=== PATIENT | male | born 1975 | race Caucasian/White ===

== ENCOUNTER 2023-03-16 10:36 | Outpatient (AMB) | payer OTHER, SELFPAY ==
--- NOTE | 2023-03-16 10:45 | A.SPINEOV_ITS ---
Intake Intake Visit Reasons: lower back pain Intake Note: Mr. Levine is here today c/o low back pain. MRI/brought disc. 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 HPI: This 47-year-old male had an L5-S1 lumbar decompression done in 2005. He developed predominantly left-sided back pain and buttock pain radiating to his posterior thigh at the end of 2019. A new MRI reviewed an L5-S1 disc herniation and he was scheduled for surgery. Fortunately, the symptoms improved and surgery was postponed. He comes to see me for a 2nd opinion. He has monthly flare-ups of severe pain that radiates to his posterior thigh but can also affect the right side. He does have numbness in his calf an outside of his left foot, which he has had after his 2006 surgery. He is worried about a instability reported and wants to know if he is at risk for neurological injury. He also wants to know what my surgical opinion is. He takes [id number] medication during flare-up. He had a cortisone shot in the past PMH: Hypertension, cervical disc replacement Medications: Lisinopril, metoprolol Allergies: NKDA Social history: . Nonsmoker Physical Exam: Pleasant male. Today he is not in distress. He has mild discomfort on the left side of his back. There is an S1 hypoesthesia in a absent S1 reflex on the left side. Motor exam is 5/5. Radiological Studies: MRI of the lumbar spine done at [facility] of 01/24/2023 was compared to an MRI of 01/28/2021 and shows severe L5-S1 lumbar degenerative disc disease with a grade 1 retrolisthesis and a disc herniation causing compression of the left S1 nerve root and possibly right S1 nerve root. The size of the disc herniation has decreased compared to 2020. An x-ray of the lumbar spine shows a stable L5-S1 grade 1 retrolisthesis L5-S1 and degenerative disc disease L5-S1 Impression/Plan: Clinically this patient seems to suffer most from a left S1 radiculopathy with a component of back pain. We had an extensive discussion of surgical options. I think it would be worthwhile to only do a lumbar microd iskectomy as his symptoms seem to be mostly radicular in origin. However, he is well aware that if this does not provide significant relief, will need an L5-S1 lumbar fusion. I scheduled him for left L5-S1 microdiskectomy for 06/09/2023. We will request office notes from the primary care physician, including EKG and lab work. Thank you for allowing me to participate in your patients care. total time spent was 50 minutes in counseling ,coordination of plan, personal review of imaging, surgical decision making and subsequent plan Giuseppe San MD, PhD Spine Fellowship Trained Neurosurgeon Director, [facility] Coding Level of Care Code New Pt Level 4 (75249) Diagnoses Lumbosacral radiculopathy due to degenerative joint disease of spine M47.27 Retrolisthesis of vertebrae M43.10
== END 2023-03-16 11:16 | disposition home or self-care (01) ==
PROVIDERS: Referring Provider Family Medicine; Visit Provider Neurological Surgery
DX: M47.27 Other spondylosis with radiculopathy, lumbosacral region (principal); M43.10 Spondylolisthesis, site unspecified
CPT/HCPCS: 99204

== ENCOUNTER → 2023-03-16 10:36 | Outpatient (BNVA) | payer OTHER, SELFPAY | PROVIDERS: Visit Provider Neurological Surgery ==

== ENCOUNTER 2023-06-09 08:28 | Day surgery (SDC) | payer OTHER, SELFPAY ==
[2023-05-25 10:45] VITALS: BMI 28.7
--- NOTE | 2023-06-07 14:08 | HO.ANESPROP2 ---
Documented by User: Phoebe Mcconnell NP 06/07/23 14:09 HPI - Anesthesia Eval Consult details Narrative: 48yo M for Left L5-S1 Micro Lumbar discectomy PMFSH Active Problems Active Problems: All Active Problems (Updated 05/25/23 @ 10:43 by Alicia Molina RN) Retrolisthesis of vertebrae (Acute) Lumbosacral radiculopathy due to degenerative joint disease of spine (Acute) Past Medical History Medical History Prediabetes Elevated cholesterol Sinusitis Pyloric stenosis Back pain IBS (irritable bowel syndrome) GERD (gastroesophageal reflux disease) Depression Ferguson esophagus Anxiety Allergic rhinitis HTN (hypertension) Surgical History Surgical History Hx of sinus surgery Hx of pyloroplasty Hx of laminectomy History of esophagogastroduodenoscopy (EGD) H/O colonoscopy Hx of cervical spine surgery Social History Social History Are you a primary home care aide to a significant other at home: No Do you presently have visiting nurse or other home services: No Patient Tobacco Use Status: Never used Tobacco Use of substances other than those prescribed or required for medical reasons: Yes Substance Use Frequency: Daily Have you been hit, kicked, punched, or otherwise hurt by someone within the past year? If so, by whom?: No Advance Directives: No Advance Directives Information Provided: Yes Advance Directives on File: No Recently lost weight without trying: No Eating poorly because of decreased appetite: No Nutrition Risks: No Nutritional Risk Poor oral hygiene: No Meds Allergies Allergy/AdvReac Type Severity Reaction Status Date / Time No Known Allergies Allergy Verified 03/16/23 13:53 Home Medications ?Medication ?Instructions ?Recorded ?Confirmed ?Last Taken ?Type lisinopril 40 mg tablet 40 mg PO QAM 05/24/23 05/25/23 06/08/23 History metoprolol succinate 100 mg 150 mg PO DAILY 05/24/23 05/25/23 06/09/23 History tablet,extended release 24 hr atorvastatin 80 mg tablet 80 mg PO QAM 05/25/23 05/25/23 06/09/23 History citalopram 20 mg tablet 20 mg PO DAILY 05/25/23 05/25/23 06/09/23 History ibuprofen 200 mg tablet 400 mg PO Q6H PRN Pain 05/25/23 05/25/23 05/26/23 History omeprazole 40 mg capsule,delayed 40 mg PO QAM 05/25/23 05/25/23 06/09/23 History release Exam Height,Weight and Vital Signs: Height 5 ft 10 in Weight 90.718 kg Pertinent Lab Results Pertinent Lab Results: CBC and BMP 01/2023 from outside facility WNL Narrative Narrative: EKG 03/2022 NSR Assessment and Plan Assessment Anesthesia Assessment: Chart Reviewed Documented by User: Morteza Spencer MD 06/09/23 13:16 [facility] Past Medical History Medical History Prediabetes Elevated cholesterol Sinusitis Pyloric stenosis Back pain IBS (irritable bowel syndrome) GERD (gastroesophageal reflux disease) Depression Ferguson esophagus Anxiety Allergic rhinitis HTN (hypertension) Family History Family history of problems with anesthesia: No Surgical History Surgical History Hx of sinus surgery Hx of pyloroplasty Hx of laminectomy History of esophagogastroduodenoscopy (EGD) H/O colonoscopy Hx of cervical spine surgery History of Problems with Anesthesia: No Social History Social History Are you a primary home care aide to a significant other at home: No Do you presently have visiting nurse or other home services: No Patient Tobacco Use Status: Never used Tobacco Use of substances other than those prescribed or required for medical reasons: Yes Substance Use Frequency: Daily Have you been hit, kicked, punched, or otherwise hurt by someone within the past year? If so, by whom?: No Advance Directives: No Advance Directives Information Provided: Yes Advance Directives on File: No Recently lost weight without trying: No Eating poorly because of decreased appetite: No Nutrition Risks: No Nutritional Risk Poor oral hygiene: No Meds Allergies Allergy/AdvReac Type Severity Reaction Status Date / Time No Known Allergies Allergy Verified 03/16/23 13:53 Home Medications ?Medication ?Instructions ?Recorded ?Confirmed ?Last Taken ?Type lisinopril 40 mg tablet 40 mg PO QAM 05/24/23 05/25/23 06/08/23 History metoprolol succinate 100 mg 150 mg PO DAILY 05/24/23 05/25/23 06/09/23 History tablet,extended release 24 hr atorvastatin 80 mg tablet 80 mg PO QAM 05/25/23 05/25/23 06/09/23 History citalopram 20 mg tablet 20 mg PO DAILY 05/25/23 05/25/23 06/09/23 History ibuprofen 200 mg tablet 400 mg PO Q6H PRN Pain 05/25/23 05/25/23 05/26/23 History omeprazole 40 mg capsule,delayed 40 mg PO QAM 05/25/23 05/25/23 06/09/23 History release Exam Airway Mallampati Class: II TM Dist: >3cm Neck ROM: Full Loose/Missing/Broken Teeth: No Heart: [id number] Lungs: cta b/l Assessment and Plan Assessment Anesthesia Assessment: Anesthesia Plan Discussed Final Anesthetic Review Family History of Problems with Anesthesia: No History of Problems with Anesthesia: No NPO: Yes ASA Class: II Final Preanesthetic Review: No Changes in Pt Med Stat, Meds/Allgs Chart Reviewed, Consent Obtained/Reviewed and Anes Risks/Benef Reviewed Patient Risk: Intermediate Procedure Risk: Intermediate Assessment/Block/Sedation in : Assess/Block/Sedation- Anesthetic Plan Anesthetic Plan: GA and Agree w/ Assess. and Plan Disposition: Standard PACU
[2023-06-09] VITALS (12 sets, daily range): BP systolic 117–136; BP diastolic 79–90; PULSE 62–88; RESP 12–18; TEMP 36.1–36.3; O2SAT 90–98; BMI 29.5
--- NOTE | ~2023-06-09 | FL_ITS ---
EXAMINATION: XR FLUOROSCOPY WITH IMAGES CLINICAL INFORMATION: L5-S1 microlumbar discectomy. COMPARISON: Portions of the MRI lumbar spine dated 01/24/2023; lumbosacral spine radiographs dated 11/18/2020. TECHNIQUE: Fluoroscopy Supervised By: Dr. Kavin San. Fluoroscopy Time: 0.0 minutes. Cumulative Dose: 5.34 mGy. DAP: 1.45 Gycm2. Images: 1. FINDINGS: The submitted image shows a probe directed at the posterior L5-S1 disc space. FL/FL guidance in OR IMPRESSION: Intraoperative fluoroscopic guidance is provided during L5-S1 microlumbar discectomy. Please see the patient's Operative Report for full procedural details.
--- NOTE | 2023-06-09 07:05 | MHC.SHP ---
Pre-Procedural Eval Section A - 24 Hr Update-Section A only Date of Service: 06/09/23 The patient is an INPATIENT: No Changes since office visit: No Cold of Flu in the past 2 weeks, No New Medical Problems, No Changes in Medication and No Patient answered all questions The patient has been examined within 24 hours of the surgical procedure. The History & Physical has been completed within 30 days and I have reviewed it.: No Section B - Complete if H&P > 30 days Chief Complaint: Spondylolisthesis,spondylosis with radiculopathy Allergies: Allergies Allergy/AdvReac Type Severity Reaction Status Date / Time No Known Allergies Allergy Verified 03/16/23 13:53 Review of Systems Sugical H&P ROS: Negative: Constitution, Cardiovascular, Respiratory, Neurological, Psychiatric, Hem-Onc, Allergic/Immunologic, Gastrointestinal, Genitourinary, Musculoskeletal, Integumentary, Endocrine and Eyes/Ears/Nose/Throat Exam Surgical H&P Exam: Not Evaluated: HEENT, Not Evaluated: Heart, Not Evaluated: Lungs, Not Evaluated: Extremities, Not Evaluated: Abdomen, Not Evaluated: Skin and Not Evaluated: Neurological Plan Diagnosis/Plan: Unchanged left L5-S1 microdiskectommy Time Spent With Patient Time: Total time managing care of this patient today _7___ minutes.
[2023-06-09] MEDS: Gabapentin 300 MG CAPSULE PO (09:14)
[2023-06-09] MEDS: methocarbamoL 750 MG TABLET PO (09:15)
[2023-06-09] MEDS: Lactated Ringers 1,000 ML 100 ML IVCONT (09:15)
--- NOTE | 2023-06-09 10:19 | PM.DS ---
DS: Providers Provider Date of Service: 06/09/23 Date of discharge: 06/09/23 Primary care physician: Nonstaff Physician Admitting clinician: Giuseppe San DS: Diagnosis Discharge Diagnosis (1) Lumbosacral radiculopathy due to degenerative joint disease of spine: Status: Acute DS: Summary Time Attestation Discharge Coordination Time (in mins): 7 Quality: Safe Use of Opioids Does Pt have an Active Cancer Diagnosis on the Problem List?: No Quality: Stroke Does the patient have a stroke diagnosis?: No Physical Exam Vital Signs: Vital Signs: Last Vital Signs Temp 97.4 F 06/09/23 08:50 Pulse 62 06/09/23 08:50 Resp 18 06/09/23 08:50 BP 136/86 06/09/23 08:50 Pulse Ox 97 06/09/23 08:50 O2 Del Method Room Air 06/09/23 08:50 BMI result Body Mass Index 29.5 Discharge Plan Discharge Patient Disposition: Home, Self-Care Referrals: Physician,Nonstaff [Primary Care Provider] - 1 Week Discharge Medications: New oxycodone 5 mg tablet 5 mg PO Q6H PRN (Reason: severe pain (scale score 7-10)) Qty: 30 0RF Rx Instructions: Partial Fill upon patient request. Continued metoprolol succinate 100 mg tablet extended release 24 hr 150 mg PO DAILY lisinopril 40 mg tablet 40 mg PO QAM atorvastatin 80 mg tablet 80 mg PO QAM omeprazole 40 mg capsule,delayed release(DR/EC) 40 mg PO QAM citalopram 20 mg tablet 20 mg PO DAILY ibuprofen 200 mg Tablet 400 mg PO Q6H PRN (Reason: Pain) Discharge Orders: Discharge Order (Routine); Ordered 06/09/23 Ordered By: Karan William Diet: Advance to usual diet Activity on Discharge: As tolerated Activity Restrictions/Additional Instructions: After your spinal surgery we ask you to observe the following restrictions/guidelines: Activity: It is normal to feel some discomfort as you increase your activity, but that will improve with time. We ask you avoid heavy lifting or acitivities that cause pain. As a general rule, 8lbs is a safe limit for lifting right after surgery. Walk as much as you feel comfortable but not to exhaustion. You will feel extra tired the first few days after surgery. Stay well hydrated. It is OK to walk up and down stairs You may return to driving when you are off narcotics (such as vicodin, oxycodone, dilaudid, etc), and you are back to normal functional capacity. If you have any concerns please check with office before driving. Return to work is specific to each patient and each surgery, so please speak with your doctor/PA at first follow up. Please bring paperwork such as FMLA at that time if you need it filled out. Medications: For optimum pain control, it is best to start with a combination of 500 mg of Tylenol every 4 hours with 600 mg of Motrin every 8 hours, and use narcotics as needed in between for breakthrough pain. We will give you a short supply of narcotics after surgery (usually one weeks worth). If you need more please call the office but do not use more than prescribed. You will need to give our office 48 hours notice if you need narcotics refilled and we do not fill narcotics on weekends or evenings. If you are on a narcotic, it is a good idea to take a stool softener such as colace or senna to avoid constipation If you take blood thinner such as aspirin, Plavix, Coumadin, Effient, Eliquis etc for conditions such as Afib, DVT, Pulmonary embolus, coronary disease, stents etc please speak with your surgeon about specific details as to when you can resume these medications. You can resume NSAIDs on post op day 1 (eg: Motrin, Naproxen, etc). Follow up: Please call the office, , after surgery to arrange a 3 week follow up for wound check. Wound Care: You may remove your dressing on the first day after surgery. ?You may ?leave open to air. Please do not remove the steri strips underneath. they will fall off on their own in one week. IT IS NORMAL FOR THE WOUND TO OOZE OR BE BLOODY FOR A FEW DAYS AFTER SURGERY. ?IF THIS HAPPENS JUST PLACE NEW DRESSING OVER IT TO AVOID STAINING CLOTHES. You may shower on post op day # 1 We ask that you do not let the water soak the wound. If it does get wet, just towel dry lightly. Please do not scrub your incision or place any type of chemical/ointment on the wound. No tub baths, pools or jacuzzis for one month. If you have any leaking or redness from your wound, or fevers, please call office Print Language: Croatian Discharge Date/Time: 06/09/23 14:47
--- NOTE | 2023-06-09 12:14 | W.PM.OPN ---
Operative Note Operative Note Date of Service: 06/09/23 Narrative: Preoperative diagnosis: Left S1 radiculopathy due to disc herniation Postoperative diagnosis: Same Procedure: Left L5-S1 microdiskectomy with microscope Surgeon: Giuseppe San MD, PhD Developmental Training Counselor: TIM Stack This 48-year-old male had left L5-S1 decompression done in 2005. It sounds like he had a recurrent disc herniation but was never operated for it. He comes in complaining of a left S1 radiculopathy. An MRI shows ongoing compression of the left S1 nerve root. The patient was offered a lumbar microdiskectomy to decompress the nerve root. The procedure complications were explained. The patient was consented. The patient was brought to the operating room and endotracheally intubated. The patient was turned in a prone position on the Rober frame. Prepping and draping was done followed by time-out. A mid lumbar incision was made followed by release of the paravertebral muscles on the left side to expose the L5-S1 interspace. An intraoperative x-rays obtained to confirm the correct level. The microscope was brought in. A L5 laminotomy was done followed by opening of the flavum ligament. The S1 nerve root was identified. The nerve root was encased in fibrous tissue which was dissected to release the nerve. The nerve was retracted medially to expose the L5-S1 disc space my impression was that the build seen on the MRI is calcified disc material. I did enter the L5-S1 disc space and attempted to push any bulging down into the disc space but was unsuccessful. The good news is that the S1 nerve root was completely decompressed over its trajectory. Hemostasis was done. The microscope was removed. Marcaine was injected intramuscularly.The incision was closed in two layers. Steri-Strips used to approximate seizure. An op-site were taken there was used to cover the incision. All sponge and needle counts were correct. Patient was extubated and transported in stable condition to recovery room. this procedure was done with the aid of a physician tutoring assistant who performed the initial exposure until the microscope was brought in and performed the closure of the incision. Anesthesia: General Blood loss: 10 mL Complications: None Specimen: None Surgical time: 40 minutes Disposition: Discharge home
--- NOTE | 2023-06-09 12:35 | P.DS_ITS ---
DS: Providers Provider Date of Service: 06/09/23 Primary care physician: Nonstaff Physician DS: Diagnosis Discharge Diagnosis (1) Lumbosacral radiculopathy due to degenerative joint disease of spine: Status: Acute DS: Summary Time Attestation Discharge Coordination Time (in mins): 15 Quality: Safe Use of Opioids Does Pt have an Active Cancer Diagnosis on the Problem List?: No Quality: Stroke Does the patient have a stroke diagnosis?: No Physical Exam Vital Signs: Vital Signs: Last Vital Signs Temp 97.4 F 06/09/23 08:50 Pulse 62 06/09/23 08:50 Resp 18 06/09/23 08:50 BP 136/86 06/09/23 08:50 Pulse Ox 97 06/09/23 08:50 O2 Del Method Room Air 06/09/23 08:50 BMI result Body Mass Index 29.5 Discharge Plan Discharge Patient Disposition: Home, Self-Care Referrals: Physician,Nonstaff [Primary Care Provider] - 1 Week Discharge Medications: New oxycodone 5 mg tablet 5 mg PO Q6H PRN (Reason: severe pain (scale score 7-10)) Qty: 30 0RF Rx Instructions: Partial Fill upon patient request. Continued metoprolol succinate 100 mg tablet extended release 24 hr 150 mg PO DAILY lisinopril 40 mg tablet 40 mg PO QAM atorvastatin 80 mg tablet 80 mg PO QAM omeprazole 40 mg capsule,delayed release(DR/EC) 40 mg PO QAM citalopram 20 mg tablet 20 mg PO DAILY ibuprofen 200 mg Tablet 400 mg PO Q6H PRN (Reason: Pain) Discharge Orders: Discharge Order (Routine); Ordered 06/09/23 Ordered By: Karan William Diet: Advance to usual diet Activity on Discharge: As tolerated Activity Restrictions/Additional Instructions: After your spinal surgery we ask you to observe the following restrictions/guidelines: Activity: It is normal to feel some discomfort as you increase your activity, but that will improve with time. We ask you avoid heavy lifting or acitivities that cause pain. As a general rule, 8lbs is a safe limit for lifting right after surgery. Walk as much as you feel comfortable but not to exhaustion. You will feel extra tired the first few days after surgery. Stay well hydrated. It is OK to walk up and down stairs You may return to driving when you are off narcotics (such as vicodin, oxycodone, dilaudid, etc), and you are back to normal functional capacity. If you have any concerns please check with office before driving. Return to work is specific to each patient and each surgery, so please speak with your doctor/PA at first follow up. Please bring paperwork such as FMLA at that time if you need it filled out. Medications: For optimum pain control, it is best to start with a combination of 500 mg of Tylenol every 4 hours with 600 mg of Motrin every 8 hours, and use narcotics as needed in between for breakthrough pain. We will give you a short supply of narcotics after surgery (usually one weeks worth). If you need more please call the office but do not use more than prescribed. You will need to give our office 48 hours notice if you need narcotics refilled and we do not fill narcotics on weekends or evenings. If you are on a narcotic, it is a good idea to take a stool softener such as colace or senna to avoid constipation If you take blood thinner such as aspirin, Plavix, Coumadin, Effient, Eliquis etc for conditions such as Afib, DVT, Pulmonary embolus, coronary disease, stents etc please speak with your surgeon about specific details as to when you can resume these medications. You can resume NSAIDs on post op day 1 (eg: Motrin, Naproxen, etc). Follow up: Please call the office, , after surgery to arrange a 3 week follow up for wound check. Wound Care: You may remove your dressing on the first day after surgery. ?You may ?leave open to air. Please do not remove the steri strips underneath. they will fall off on their own in one week. IT IS NORMAL FOR THE WOUND TO OOZE OR BE BLOODY FOR A FEW DAYS AFTER SURGERY. ?IF THIS HAPPENS JUST PLACE NEW DRESSING OVER IT TO AVOID STAINING CLOTHES. You may shower on post op day # 1 We ask that you do not let the water soak the wound. If it does get wet, just towel dry lightly. Please do not scrub your incision or place any type of chemical/ointment on the wound. No tub baths, pools or jacuzzis for one month. If you have any leaking or redness from your wound, or fevers, please call office Print Language: [place]an
[2023-06-09] MEDS: oxyCODONE HCl Immed Release 5 MG TABLET PO (13:17)
[2023-06-09] MEDS: HYDROmorphone HCl 0.5 MG/0.5 ML SYRINGE IVPUSH (13:17)
== END 2023-06-09 14:47 | disposition home or self-care (01) ==
PROVIDERS: Visit Provider Neurological Surgery
PROC: (CPT 63030; principal; 2023-06-09 10:30)
DX: M47.27 Other spondylosis with radiculopathy, lumbosacral region (principal); M43.10 Spondylolisthesis, site unspecified; M54.89 Other dorsalgia; M51.37 Other intervertebral disc degeneration, lumbosacral region; I10 Essential (primary) hypertension; Z79.899 Other long term (current) drug therapy
CPT/HCPCS: 63030; J0131; J0690; J1100; J1170; J1596; J1885; J2250; J2405; J2704; J3010

== ENCOUNTER → 2023-06-09 08:28 | Outpatient (BNV) | payer OTHER, SELFPAY | PROVIDERS: Visit Provider Neurological Surgery | DX: M47.27 Other spondylosis with radiculopathy, lumbosacral region (principal) | CPT/HCPCS: 63030; 99499 ==

== ENCOUNTER 2024-11-07 14:22 | Outpatient (AMB) | payer BC, SELFPAY ==
--- NOTE | 2024-11-07 14:38 | A.SPINEOV_ITS ---
Intake Visit Reasons: back pain Intake Note: Mr. Levine is here today c/o back pain. 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 Allergies No Known Allergies Allergy (Verified 11/07/24 14:41) Assessment & Plan Assessment & Plan (1) Disc disease, degenerative, lumbar or lumbosacral: Code(s): M51.379 - Other intervertebral disc degeneration, lumbosacral region without m ention of lumbar back pain or lower extremity pain Category: Medical Qualifiers: Disc-related pain type: discogenic back pain and lower extremity pain Qualified Code(s): M51.372 - Other intervertebral disc degeneration, lumbosacral region with discogenic back pain and lower extremity pain Plan Dear colleague, On 11/06/2024, I saw for return visit Samir Levine. Originally, he was suffering from back pain and left lumbar radiculopathy. Imaging reviewed a collapse of the L5-S1 disc space with Modic changes and an L5-S1 disc herniation compressing the left S1 nerve root. He stated that his leg pain was worse than the back pain and therefore we decided to only do a microdiskectomy on 06/08/2024. This took care of the left-sided leg pain. He returns to my clinic stating that his back pain is actually unbearable. His has to put on his socks. The pain is constant and interferes with the sleep. He has tried conservative management in the past such as physical therapy, lifestyle modification, [id number] medication and even injections. He is looking for more permanent solution. In our initial conversation, we already discussed an L5-S1 lumbar fusion but due to the fact that the left leg pain was more dominant we decided on the microdiskectomy only. I think he is a good candidate for a lumbar fusion. You discuss several approaches to the L5-S1 segment. In his case I think he is an excellent candidate for an anterior lumbar interbody fusion L5-S1. I would like to get an updated MRI as the latest one is from December 2022. I will order the MRI and he will revisit me to finalize the surgical plan. I spent 25 minutes in his consult for history, physical exam and reviewing imaging. Giuseppe San MD, PhD Spine Fellowship Trained Neurosurgeon Director, [facility] Orders: Orders MR lumbar spine wo con Today M51.372 - Other intervertebral disc degeneration, lumbosacral region with discogenic back pain and lower extremity pain Coding Level of Care Code Est Pt Level 3 (71145) Diagnoses Degeneration of intervertebral disc of lumbosacral region with discogenic back pain and lower extremity pain M51.372 Disc-related pain type: discogenic back pain and lower extremity pain
--- OUTSIDE RECORDS SUMMARY | 2024-11-07 16:41 | XMS_ITS | Clinical Summary ---
Author Organization [facility] Address [address] [place] [id number] Care Team Providers Care Launchman Name Role Phone Kevin De La Rosa DO Primary Care Provider [phone] Allergies No known active allergies Medications citalopram (CeleXA) 20 MG tablet Take 20 mg by mouth daily. 04/17/2021 Active lisinopril (PRINIVIL,ZeSTRI L) 20 MG tablet Take 20 mg by mouth daily. 06/18/2021 Active metoPROLOL SUCCINATE (TOPROL-XL) 100 MG 24 hr tablet Take 150 mg by mouth daily. 06/18/2021 Active OMEprazole (PriLOSEC) 40 MG capsule Take by mouth daily. 06/18/2021 Active famotidine (PEPCID) 20 MG tabletIndication s:Dyspepsia Take 1 tablet (20 mg total) by mouth nightly. 90 tablet 1 07/10/2021 Active atorvastatin (LIPITOR) 80 MG tablet TAKE 1 TABLET (80 MG TOTAL) BY MOUTH IN THE MORNING 02/23/2023 Active Sodium Sulfate-Mag Sulfate-KCl (Sutab) 5457-723-608 MG TabIndications:H istory of adenomatous polyp of colon One dose of 12 tablets on the Day Prior to procedure. One dose of 12 tablets on the Day Of the procedure. 24 tablet 04/06/2023 Active Social History Tobacco Use Types Packs/Day Years Used Date Smoking Tobacco: Never Smokeless Tobacco: Never Alcohol Use Standard Drinks/Week Comments Yes 0 (1 standard drink = 0.6 oz pur e alcohol) Sex and Gender Information Value Date Recorded Sex Assigned at Not on file Legal Sex Male 11:58 AM EDT Gender Identity Not on file Sexual Orientation Not on file Last Filed Vital Signs Vital Sign Reading Time Taken Comments Blood Pressure 114/70 04/06/2023 1:24 PM EST Pulse 71 04/06/2023 1:24 PM EST Temperature 36.8 C (98.2 F) 07/10/2021 9:16 AM EDT Respiratory Rate - - Oxygen Saturation - - Inhaled Oxygen Concentration - - Weight 90.7 kg (200 lb) 04/06/2023 1:24 PM EST Height 177.8 cm (5' 10 ) 04/06/2023 1:24 PM EST Body Mass Index 28.7 04/06/2023 1:24 PM EST Plan of Treatment Health Maintenance Due Date Last Done Comments Hepatitis C Virus Screening 1973 HIV Screening 1986 DTaP/Tdap/Td Vaccines (1 - Tdap) 1992 Hepatitis B Vaccines (1 of 3 - 19+ 3-dose series) 1992 Pneumococcal Vaccines 50+ (1 of 1 - PCV) 06/02/2023 Zoster (Shingles) Vaccine (1 of 2) 06/02/2023 Influenza Vaccine 10/05/2024 01/26/2019, 02/11/2017 COVID-19 Vaccine ( - 2024- season) 2024, 06/05/2020 Colonoscopy 2026 06/02/2023 (Prev iously Completed), 08/19/2021 (Previously Completed) [place] [id number] [place] [address] Care Teams Launchman Relationship Specialty Start Date End Date Kevin De La Rosa DO 1 [facility] [address] [place] [address] [facility] - General 05/29/21
--- OUTSIDE RECORDS SUMMARY | 2024-11-07 16:41 | XMS_ITS | Clinical Summary ---
Author Organization [facility] Address [address] [place] [address] Care Team Providers Care Gray Mixing Operator Name Role Phone Kevin De La Rosa DO Primary Care Provider Unawilliam lable Allergies No known active allergies Medications omeprazole (PriLOSEC) 40 mg capsule Take 1 capsule (40 mg total) by mouth in the morning. 90 capsule 3 4 12/16/19 25 Active metoprolol succinate XL (TOPROL-XL) 100 mg 24 hr tablet Take 1.5 tablets (150 mg total) by mouth in the morning. 135 tablet 3 4 Active atorvastatin (LIPITOR) 80 mg tablet Take 1 tablet (80 mg total) by mouth in the morning. 90 tablet 3 4 12/16/19 25 Active lisinopriL (PRINIVIL) 40 mg tablet Take 1 tablet (40 mg total) by mouth in the morning. 90 tablet 3 5 04/18/19 26 Active citalopram (celeXA) 20 mg tabletIndications :Anxiety with depression Take 1 tablet by mouth once daily 90 tablet 3 5 Active multivitamin with folic acid (THERAGRAN) 400 mcg tablet Take 1 tablet by mouth in the morning. Active coenzyme Q10 (Co Q-10) 10 mg capsule Take 10 mg by mouth in the morning. 1 cap PO daily dose unk. Active fluticasone propionate (FLONASE) 50 mcg/actuation nasal spray Administer 1 spray into each nostril in the morning and 1 spray before bedtime. Active fexofenadine (Vanessa Allergy) 180 mg tablet Take 180 mg by mouth in the morning. Active levocetirizine (Xyzal) 5 mg tabletIndications :Allergic rhinitis, unspecified seasonality, unspecified trigger Take 1 tablet (5 mg total) by mouth nightly. 30 tablet 2 01/30/20 Active budesonide (Pulmicort) 0.5 mg/2 mL nebulizer solutionIndicatio ns:Allergic rhinitis, unspecified seasonality, unspecified trigger,Chronic pansinusitis Add 2 mL of the budesonide nebulizer solution to the nasal saline rinse solution twice a day 120 mL 2 Active Active Problems Problem Noted Date Diagnosed Date History of sinus surgery 10/31/2024 Allergic rhinitis 10/31/2024 Chronic pansinusitis 10/31/2024 Sinus pressure 10/31/2024 Obstructive sleep apnea syndrome 07/24/2024 Overweight (BMI 25.0-29.9) 07/24/2024 Gastroesophageal reflux dise ase with esophagitis without hemorrhage 05/31/2024 Witnessed apneic spells 05/31/2024 Overview (05/31/2024): Associated with daytime hypersomnolence ---> referral to [facility] pulmonary Assessment & Plan (05/31/2024 1:23 PM EDT): Referral to pulmonary [place] to set up sleep study suspected SURESH Abnormal EKG 05/03/2024 Assessment & Plan (05/03/2024 1:43 PM EST): Asymptomatic no change in functional capacity Differential Dx discussed - Will check ETT and TTE Recheck in 1 months time or sooner if acute concern Right knee pain 09/22/2023 Overview (09/22/2023): Assessment & Plan (09/22/2023 9:18 AM EDT): Differential Dx reviewed consider OA vs other Will check labs and xrays --> and recheck for Annual in 2-3 weeks time Acute midline low back pain with bilateral sciat ica 01/12/2023 Assessment & Plan (01/13/2023 1:56 PM EST): Ongoing pain and disability - awaiting Lumbar spine MRI Please call radiology [facility] --> to schedule Please continue modified ADL's and follow up with spine clinic [facility] Left lower quadrant abdominal pain 02/14/2022 Assessment & Plan (02/15/2022 9:00 AM EST): Suspect Diverticulitis Please start Augmentin and Metronidazole See ERx Modified diet and recheck for annual physical in 1-2 months time or recheck sooner if acute concern Foot drop, left 12/05/2020 Assessment & Plan (12/05/2020 3:15 PM EDT): With progressed neurologic drop out (IE partial left foot drop and marked abnormal gait ) Will resubmit to insurance for LS spine MRI Will immediately refer to Neuro Sx as well Left leg weakness 11/13/2020 Assessment & Plan (11/13/2020 11:40 AM EDT): With previous L5 S! Sx suspect upper L4-L5 NF stenosis vs central spinal stenosis may be involved Will check LS spine xray + MRI Modify ADL's and recheck in 2 weeks time or sooner if acute concern Onychomycosis of great toe 06/13/2020 Overview (06/13/2020): Diflucan 200 mg 1 tablet po q weekly x4-6 months Recheck as above Annual physical exam 06/12/2020 Assessment & Plan (05/03/2024 1:41 PM EST): EKG-see today Gili-2-38-2025 reviewed Vaccinations-consider seasonal flu- Covid Colonoscopy-last 2023 repeat 2028 Assessment & Plan (03/26/2022 9:02 AM EST): EKG-see today Labs- Vaccinations-consider seasonal flu- Bivalent Covid Colonoscopy-last 2017 repeat 2022 EGD last 2021 Planned repeat 1 yr -CTGI Assessment & Plan (06/13/2020 7:55 AM EDT): EKG-wnl Labs- reviewed hard copy given Repeat K+ Vaccinations- Tdap today 1st Covid received Colonoscopy 2018 with FHx repeat Q 5 years EGD 2019 Pre-diabetes 05/04/2019 Assessment & Plan (03/26/2022 8:47 AM EST): Labs reviewed Best effort weight and diet Assessment & Plan (06/13/2020 7:34 AM EDT): Best effort weight and diet Assessment & Plan (05/04/2019 11:53 AM EST): Last fasting glucose: (04/21/2019) -- 110 HgA1c (04/21/2019): 5.5 Best effort weight and diet Will recheck labs in -- Will continue to follow clinically Umbilical hernia without obstruction and without gangrene 05/04/2019 Assessment & Plan (05/31/2024 1:25 PM EDT): No surgery at this time Best effort weight and diet Assessment & Plan (05/04/2019 12:03 PM EST): Easily reducible: Treatment is weight loss education Will consider surgery if symptomatic Best effort weight and diet Will continue to follow clinically-- recheck as needed Diverticulosis 01/25/2019 Assessment & Plan (01/26/2019 10:26 AM EST): Will continue to follow clinically Essential hypertension 09/06/2017 Assessment & Plan (05/31/2024 1:24 PM EDT): BP noted Please continue maintenance medication and best effort weight and diet Recheck with new PCP - Primary care transition discussed Assessment & Plan (05/03/2024 1:15 PM EST): BP - noted Maintenance medication reviewed Please continue maintenance medication and best effort weight - diet and modified exercise Assessment & Plan (09/22/2023 9:17 AM EDT): BP - noted Maintenance medication reviewed Please continue maintenance medication and best effort weight - diet and modified exercise Reschedule for Annual as above. Assessment & Plan (01/13/2023 1:57 PM EST): BP excellent please continue maintenance medication and best effort weight and diet Assessment & Plan (11/29/2022 9:40 AM EDT): BP- noted yet home tracking better Maintenance medication reviewed Please continue maintenance medication as reviewed and best effort weight - diet and modified exercise Recheck in 4 months time or sooner if acute concern Assessment & Plan (03/26/2022 8:51 AM EST): BP- noted Maintenance medication reviewed Please continue maintenance medication as reviewed and best effort weight - diet and modified exercise Recheck in 2 months time or sooner if acute concern Assessment & Plan (02/15/2022 9:00 AM EST): Please increase Lisinopril to 40 mg po daily and track BP at home Please recheck as above Assessment & Plan (11/13/2020 11:43 AM EDT): BP elevated - please track at home and recheck as above For now continue maintenance medication Assessment & Plan (06/13/2020 7:58 AM EDT): BP elevated - please continue maintenance medication and best effort weight and diet Please track 3-4 x daily x 1-2 weeks and recheck in 1-2 weeks Assessment & Plan (05/04/2019 11:56 AM EST): BP noted today --155/90 Please continue to track BP at home - outpatient tracking unacceptable Please adjust maintenance medications as reviewed: --Adjust Metoprolol XL 100 mg 2 tablets po daily --Start Lisinopril 20 mg 1 tablets po daily Best effort weight and diet Reduce coffee and alcohol intake Assessment & Plan (01/26/2019 10:25 AM EST): BP noted today - 142/94 Please track BP at home Please continue maintenance medication as reviewed with patient Best effort weight and diet Assessment & Plan (09/13/2017 10:54 AM EDT): Hypertension is stable BP noted today is elevated, but patient reports good tracking results at home. Please, continue tracking BP at home Best effort weight and diet Continue maintenance medication Assessment & Plan (09/06/2017 2:31 PM EDT): Hypertension is improving BP noted today is elevated Please, continue tracking BP at home Best effort weight and diet Continue maintenance medication Mixed hyperlipidemia 09/06/2017 Assessment & Plan (05/03/2024 1:17 PM EST): Last LDL = LDL goal < 100 Maintenance statin reviewed --please continue maintenance statin as reviewed and best effort weight and diet Assessment & Plan (09/22/2023 9:19 AM EDT): Will check surveillance ---> labs Maintenance statin reviewed Please continue with best effort weight - diet and modified exercise Reschedule as above. Assessment & Plan (01/13/2023 1:59 PM EST): Definitely improved LDL Goal < 100. Maintenance statin reviewed Please continue and will recheck labs in 2 months time Assessment & Plan (11/29/2022 9:39 AM EDT): LDL = 179 not to goal LDL goal < 100 Will change simvastatin to atorvastatin 80 mg po daily and recheck surveillance labs in 1 month's time Best effort weight and diet Reschedule -2023 Annual . Assessment & Plan (03/26/2022 8:51 AM EST): LDL not to goal < 100 Please continue maintenance statin with better diet and recheck FLP in 2 months time Recheck in 2 months time or sooner if acute concern Surveillance labs reviewed to date (LDL = 161 ) - will continue Assessment & Plan (02/15/2022 9:01 AM EST): LPlease contin ue maintenance statin and best effort weight and diet Please obtain surveillance labs and recheck as above Assessment & Plan (06/13/2020 7:34 AM EDT): Continue statin - check surveillance labs Assessment & Plan (05/04/2019 11:53 AM EST): Last LDL: (04/21/2019) -- 79 Best effort weight and diet Please continue maintenance medication as reviewed with patient and regular surveillance lab intervals --Simvastatin 40 mg 1 tablet po daily Assessment & Plan (09/13/2017 10:55 AM EDT): Continue statin Best effort weight and diet Will follow clinically Assessment & Plan (09/06/2017 2:18 PM EDT): Continue statin Best effort weight and diet Will follow clinically Gastroesophageal reflux disease without esophagi tis 09/06/2017 Assessment & Plan (05/31/2024 1:24 PM EDT): Please continue PPI and best effort weight - diet and modified behavioral Assessment & Plan (05/03/2024 1:15 PM EST): Best effort weight and dietary modifications for anti-GERD Continue maintenance medication as reviewed with patient Medication reviewed including risk/benefit --Omeprazole 40 mg 1 tablet po daily Assessment & Plan (11/29/2022 7:45 AM EDT): Symptoms - appear controlled with medication -Please continue maintenance medication and best effort weight - diet and modified ADL's Assessment & Plan (03/26/2022 9:04 AM EST): Continue maintenance acid blockers- best effort weight- diet and behavorial modification Last Endo= EGD 2021 Repeat 2022 planned Best done with colonoscopy as due 2022 as well Assessment & Plan (06/13/2020 7:37 AM EDT): Symptoms controlled with PPI omeprazole + best dietary and behavorial modification Assessment & Plan (05/04/2019 11:47 AM EST): Best effort weight and dietary modifications for anti-GERD Continue maintenance medication as reviewed with patient Medication reviewed including risk/benefit --Omeprazole 40 mg 1 tablet po daily Assessment & Plan (01/26/2019 10:26 AM EST): Best effort weight and dietary modifications for anti-GERD Continue maintenance medication as reviewed with patient Medication reviewed including risk/benefit Assessment & Plan (09/13/2017 10:55 AM EDT): Patient to get scheduled for EGD - referral given Will follow clinically and collaborate Assessment & Plan (09/06/2017 2:26 PM EDT): Patient referred to GI for EGD Will follow clinically and collaborate Recheck in 1 week or sooner if any acute concern Anxiety and depression 09/06/2017 Assessment & Plan (06/13/2020 7:36 AM EDT): ADL's baseline -will continue SSRi ---> celexa Assessment & Plan (01/26/2019 10:27 AM EST): Continue maintenance medication Will continue to follow clinically Assessment & Plan (09/06/2017 2:19 PM EDT): Continue maintenance medication Will follow clinically History of Ferguson's esophagus 09/06/2017 Assessment & Plan (11/29/2022 7:49 AM EDT): Last EGD/colonoscopy - 08-10-2021 ?? [facility] [place] formal path ? Assessment & Plan (03/26/2022 9:05 AM EST): As per GERD -- management Assessment & Plan (05/04/2019 11:47 AM EST): As per GERD Assessment & Plan (01/26/2019 10:27 AM EST): As per GERD Assessment & Plan (09/06/2017 2:23 PM EDT): Patient referred to GI for EGD Will follow clinically and collaborate Diverticulitis of large inte eugenio without perforation or abscess without bleeding 09/06/2017 Assessment & Plan (09/13/2017 11:02 AM EDT): Patient referred to GI for evaluation to [facility] / colonoscopy Will follow clinically and collaborate Patient to DC Cipro/ Metronidazole Recheck in 2 weeks or sooner if any acute concern Assessment & Plan (09/06/2017 2:30 PM EDT): Acute presentation - non toxic Will treat outpatient with antibiotic - Cipro / Metronidazole x10 days Modify diet as instructed Recheck in 1 week or sooner if any acute concern Resolved Problems Problem Noted Date Diagnosed Date Resolved Date Hyperkalemia 06/13/2020 11/27/2022 Assessment & Plan (06/13/2020 7:42 AM EDT): Suspect hemolysis on past lab draw will repeat K+ Encounters Date Type Department Care Team Description 10/31/2024 2:40 PM EDT Ancillary Procedure Pending sale to [facility] X-ray Imaging [address] [place] [address] Halina Callahan PA-C Chronic pansinusitis 10/31/2024 2:30 PM EDT [facility] Department of Otolaryngology [address] [place] [address] Halina Callahan PA-C History of sinus surgery (Primary Dx); Allergic rhinitis, unspecified seasonality, unspecified trigger; Chronic pansinusitis; Sinus pressure 09/05/2024 7:30 PM EDT Procedure visit Pending sale to [facility] Sleep Medicine [address] [place] [address] Alicia Arriaga, COMBAT CONTROL MANAGER Obstructive sleep apnea syndrome from Last 3 Months Immunizations Immunization Administration Dates Next Due Influenza, Quadrivalent 01/26/2019 Influenza, Unspecified 02/11/2017 Tdap 06/13/2020 Family History Medical History Relation Comments Coronary artery disease Brother 1 Hypertension Brother 1 Sleep apnea Brother 1 coronary sten Brother 1 No Known Problems Brother 2 Heart attack Father Hyperlipidemia Father Hypertension Father Prostate cancer Maternal Grandfather No Known Problems Maternal Grandmother Cancer Mother goblet cell cA Heart attack Paternal Grandfather Brain cancer Paternal Grandmother Hypertension Sister Relation Status Comments Brother 1 Alive Brother 2 Alive Father Maternal Grandfather Maternal Grandmother Mother Paternal Grandfather Paternal Grandmother Sister Alive Social History Tobacco Use Types Packs/Day Years Used Date Smoking Tobacco: Never Smokeless Tobacco: Former Tobacco Cessation:Counseling Given: No Alcohol Use Standard Drinks/Week Comments Yes 0 (1 standard drink = 0.6 oz pur e alcohol) 2 beers day [facility] Utilities Answer Date Recorded In the past 12 months has th e electric, gas, oil, or water company threatened to shut off services in your home? No 05/03/2024 Overall Financial Resource Strain (CARDIA) Answe r Date Recorded How hard is it for you to pa y for the very basics like food, housing, medical care, and heating? Not hard at all 05/03/2024 PHQ-2 Answer Date Recorded PHQ-2 Score 0 05/31/2024 Hunger Vital Sign Answer Date Recorded Within the past 12 months, y ou worried that your food would run out before you got the money to buy more. Never true 05/03/19 25 Ran Out of Food in the Last Year Not on file 05/03/2024 PRAPARE - Transportation Answer Date Re corded In the past 12 months, has l ack of transportation kept you from medical appointments or from getting medications? No 05/03/2024 Lack of Transportation (Non-Medical) Not on file 05/03/2024 Housing Stability Vital Sign Answer Remberto e Recorded In the last 12 months, was t here a time when you were not able to pay the mortgage or rent on time? No 05/03/2024 Number of Times Moved in the Last Year Not on fi le 05/03/2024 At any time in the past 12 m [facility], were you homeless or living in a intermediate (including now)? No 05/03/2024 Education Answer Date Recorded What is the highest level of school you have completed or the highest degree you have received? 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 No / Unsure 10/31/2024 2:02 PM EDT Last Filed Vital Signs Vital Sign Reading Time Taken Comments Blood Pressure 150/83 10/31/2024 2:05 PM EDT Pulse 78 10/31/2024 2:05 PM EDT Temperature 36.3 C (97.3 F) 06/13/2020 7:37 AM EDT Respiratory Rate 16 07/24/2024 2:07 PM EDT Oxygen Saturation 97% 07/24/2024 2:07 PM EDT Inhaled Oxygen Concentration - - Weight 86.2 kg (190 lb) 10/31/2024 2:05 PM EDT Height 177.8 cm (5' 10 ) 10/31/2024 2:05 PM EDT Body Mass Index 27.26 10/31/2024 2:05 PM EDT Plan of Treatment Upcoming Encounters Date Type Department Care Team (Late st Contact Info) Description 11/13/2024 1:20 PM EDT Office Visit Pending sale to [facility] [address] [place] [address] Halina Callahan PA-C [address] [place] [address] Tiffany Cain, RN [facility] [address] [place] [id number] 02/04/2025 1:30 PM EST Office Visit Pending sale to [facility] [address] [place] [id number] Halina Callahan PA-C [address] [place] [id number] Health Maintenance Due Date Last Done Comments CT Colonography 1973 Colonoscopy 1973 Colorectal Cancer Screening 1973 FIT-DNA (Cologuard) 1973 FIT 1973 FOBT 1973 Flex Sigmoidoscopy - 5y 1973 HIV Screening 1973 Hepatitis C Screening 06/02/1991 Hepatitis B Vaccines (1 of 3 - 19+ 3-dose series) 1992 Pneumococcal Vaccine, 50+ Years (1 of 1 - PCV) 06/02/2023 Zoster Vaccines (1 of 2) 06/02/2023 COVID-19 Vaccine (3 - 2024-2 6 season) 2024 07/19/2020, 06/05/2020 Influenza Vaccine (#1) 2024 9, 02/11/2017 DTaP,Tdap,and Td Vaccines (2 - Td or Tdap) 06/13/2030 06/13/2020 HPV Vaccines Aged Out No longer eligi ble based on patient's age to complete this topic Hepatitis A Vaccines Aged Out No long er eligible based on patient's age to complete this topic MMR Vaccines Aged Out No longer eligi ble based on patient's age to complete this topic Meningococcal Vaccine Aged Out No carol ling eligible based on patient's age to complete this topic Procedures Procedure Name Priority Date/Time Associated Diagnosis Comments XR SINUSES 3+ VW Routine 10/31/2024 2:46 PM EDT Chronic pansinusitis HOME SLEEP APNEA TESTING Routine 09/05/2024 12:00 AM EDT Obstructive sleep apnea syndrome MAGNESIUM (Q) Routine 08/22/2024 1:20 PM EDT Gastroesophageal reflux disease with esophagitis without hemorrhage from Last 3 Months Results * XR sinuses 3+ vw (10/31/2024 2:46 PM EDT) Anatomical Region Laterality Modality Head and Neck Computed Radiogr aphy 10/31/2024 2:49 PM EDT Impressions 10/31/2024 2:51 PM EDT No radiographic evidence for sinusitis. Reminder to Patients and Legally Authorized Representatives: Language in this report is designed for medical communication with other treating physicians and clinical practitioners. Please speak with your provider(s) about any questions or concerns related to the content of this report. Juan Cornelius MD AF^0 Narrative 10/31/2024 2:51 PM EDT Indication: Sinusitis, <=12w, uncomplicated J32.4 Chronic pansinusitis Technique: Dasilva, Francis and right and left lateral view of the sinuses Comparison: None at this time. Findings: Paranasal sinuses are clear. Right frontal sinus is not pneumatized. No radiopaque foreign body over the orbits. Dental amalgam. C4-5 C5-6 arthroplasties present. Procedure Note Juan Cornelius MD - 10/31/2024 Indication: Sinusitis, <=12w, uncomplicated J32.4 Chronic pansinusitis Technique: Dasilva, Francis and right and left lateral view of thesinuses Comparison: None at this time. Findings: Paranasal sinuses are clear. Right frontal sinus is notpneumatized. No radiopaque foreign body over the orbits. Dental amalgam.C4-5 C5-6 arthroplasties present. IMPRESSION: No radiographic evidence for sinusitis. Reminder to Patients and Legally Authorized Representatives: Language in this report is designed for medical communication with othertreating physicians and clinical practitioners. Please speak with your provider(s) about any questions or concernsrelated to the content of this report. Juan Cornelius MD AF^0 Halina Callahan PA-C IMG XR PROCEDURES Final Resu lt * Home sleep testing (09/05/2024 12:00 AM EDT) 09/05/2024 Alicia Arriaga [facility] ORDERABLES Edited Result - Final [facility] [address] [facility] [place] [address], * MAGNESIUM (Q) (08/22/2024 1:20 PM EDT) [facility] MAGNESIUM 2.0 1.5 - 2.5 mg/dL [facility] Blood 08/22/2024 1:20 PM EDT 08/22/2024 1:22 PM EDT Narrative [facility] - 08/23/2024 3:49 AM EDT FASTING:NO FASTING: NO Kevin De La Rosa DO [facility] ORDERABLES Oliva guzman Result [facility] [address] [place] [id number] from Last 3 Months Insurance Care Teams Gray Mixing Operator Relationship Specialty Start Date End Date Kevin De La Rosa DO PCP - General 05/04/17
--- OUTSIDE RECORDS SUMMARY | 2024-11-07 16:41 | XMS_ITS | Encounter Summary ---
Author Organization [facility] Address [address] [place] [id number] Care Team Providers Care Central Communications Specialist Name Role Phone Rj Kevin Jimenez DO Primary Care Provider Tod hammond Encounter Details Date Type Department Care Team (Late st Contact Info) Description 12/05/2020 Orders Only [facility] Department of Interventional Radiology Imaging [address] [place] [address] Homer Dixon MD Social History Tobacco Use Types Packs/Day Years Used Date Smoking Tobacco: Never Smokeless Tobacco: Former Sex and Gender Information Value Date Recorded Sex Assigned at Male 09/06/2023 3:56 PM EDT Legal Sex Male 4:49 AM EST Gender Identity Male 09/06/2023 3:56 PM EDT Sexual Orientation Straight 09/06/2023 3: 56 PM EDT COVID-19 Exposure Response Date Recorded In the last month, have you been in contact with someone who was confirmed or suspected to have Coronavirus / COVID-19? No / Unsure 12/05/2020 2:52 PM EDT documented as of this encounter Plan of Treatment Upcoming Encounters Date Type Department Care Team (Late st Contact Info) Description 11/13/2024 1:20 PM EDT Office Visit [facility] Department of Otolaryngology [address] [place] [address] Halina Callahan PA-C [address] [place] [address] Tiffany Cain, RN [facility] [address] [place], [place] [id number] 02/04/2025 1:30 PM EST Office Visit [facility] Department of Otolaryngology [address] [id number] Halina Callahan PAGunnar [address] [id number] documented as of this encounter Visit Diagnoses Not on filedocumented in this encounter Additional Health Concerns Infection Onset Date Last Indicated Resolved Time COVID-19 (confirmed) 02/04/2022 02/09/2022 022 10:08 PM EST documented as of this encounter Care Teams Central Communications Specialist Relationship Specialty Start Date End Date Kevin De La Rosa DO PCP - General 05/04/17 documented as of this encounter
--- OUTSIDE RECORDS SUMMARY | 2024-11-07 16:41 | XMS_ITS | Encounter Summary ---
Author Organization [facility] Address [address] [place] [address] Care Team Providers Care General Foreman Name Role Phone Kevin De La Rosa Primary Care Provider [phone] Encounter Details Date Type Department Care Team (Late st Contact Info) Description 08/10/2021 Scanned Document [facility] [address] [phone] Oracio Valverde DO [address] [place] [address] Social History Tobacco Use Types Packs/Day Years Used Date Smoking Tobacco: Never Smokeless Tobacco: Never Alcohol Use Standard Drinks/Week Comments Yes 0 (1 standard drink = 0.6 oz pur e alcohol) Sex and Gender Information Value Date Recorded Sex Assigned at Not on file Legal Sex Male 11:58 AM EDT Gender Identity Not on file Sexual Orientation Not on file documented as of this encounter Plan of Treatment Not on file documented as of this encounter Procedures Procedure Name Priority Date/Time Associated Diagnosis Comments PATHOLOGY REPORT 08/10/2021 4:14 PM EDT documented in this encounter Results * PATHOLOGY REPORT (08/10/2021 4:14 PM EDT) Oracio Valverde DO PATHOLOGY/CYTOLOGY ORDERABLES Fi nal Result documented in this encounter Visit Diagnoses Not on filedocumented in this encounter Care Teams General Foreman Relationship Specialty Start Date End Date Roto, Kevin F, DO [address] [place] [address] PCP - General 05/29/21 documented as of this encounter
--- OUTSIDE RECORDS SUMMARY | 2024-11-07 16:41 | XMS_ITS | Encounter Summary ---
Author Organization [facility] Address [address] [place] [address] Care Team Providers Care Boom Master Name Role Phone Kevin De La Rosa DO Primary Care Provider Tod hammond Encounter Details Date Type Department Care Team (Late st Contact Info) Description 02/15/2022 Orders Only [facility] [address] [place] [phone] Kevin De La Rosa DO Social History Tobacco Use Types Packs/Day Years Used Date Smoking Tobacco: Never Smokeless Tobacco: Former Alcohol Use Standard Drinks/Week Comments Yes 0 (1 standard drink = 0.6 oz pur e alcohol) occasionally Sex and Gender Information Value Date Recorded Sex Assigned at Male 09/06/2023 3:56 PM EDT Legal Sex Male 4:49 AM EST Gender Identity Male 09/06/2023 3:56 PM EDT Sexual Orientation Straight 09/06/2023 3: 56 PM EDT COVID-19 Exposure Response Date Recorded In the last 10 days, have yo u been in contact with someone who was confirmed or suspected to have Coronavirus/COVID-19? No / Unsure 02/15/2022 8:46 AM EST documented as of this encounter Plan of Treatment Upcoming Encounters Date Type Department Care Team (Late st Contact Info) Description 11/13/2024 1:20 PM EDT Office Visit [facility] Department of Otolaryngology [address] [place] [address] Halina Callahan PA-C [address] [place] [address] Tiffany Cain, RN [facility] [address] [place] [address] 02/04/2025 1:30 PM EST Office Visit [facility] Department of Otolaryngology [address] [place], [place] [phone] Halina Callahan, PA-C [address] [place] [address] documented as of this encounter Visit Diagnoses Not on filedocumented in this encounter Additional Health Concerns Infection Onset Date Last Indicated Resolved Time COVID-19 (confirmed) 02/04/2022 02/09/2022 022 10:08 PM EST documented as of this encounter Care Teams Boom Master Relationship Specialty Start Date End Date Kevin De La Rosa DO PCP - General 05/04/17 documented as of this encounter
--- OUTSIDE RECORDS SUMMARY | 2024-11-07 16:41 | XMS_ITS | Encounter Summary ---
Author Organization [facility] Address [address] [place] [address] Care Team Providers Care Ammonia Print Operator Name Role Phone Kevin De La Rosa DO Primary Care Provider [phone] Encounter Details Date Type Department Care Team (Late st Contact Info) Description 01/24/2023 Scanned Document [facility] [address] [phone] Provider, Eloy, [address] [place] [address] Social History Tobacco Use Types Packs/Day Years [...] on file documented as of this encounter Visit Diagnoses Not on filedocumented in this encounter Care Teams Ammonia Print Operator Relationship Specialty Start Date End Date Kevin De La Rosa DO [address] [phone] PCP - General 05/29/21 documented as of this encounter
--- OUTSIDE RECORDS SUMMARY | 2024-11-07 16:41 | XMS_ITS ---
Author Name [facility] Organization Unknown History of Medication Use Medication Directions Dispensed Refills Start Date End Date Stat budesonide (Pulmicort) 0.5 mg/2 mL nebulizer solution Add 2 mL of the budesonide nebulizer solution to the nasal saline rinse solution twice a day 10/31/2024 active levocetirizine (Xyzal) 5 mg tablet Take 1 tablet (5 mg total) by mouth nightly. 10/31/2024 active atorvastatin (LIPITOR) 80 mg tablet Take 1 tablet (80 mg total) by mouth in the morning. 11/29/2022 11/30/2023 active citalopram (celeXA) 20 mg tablet take 1 tablet by mouth every day 05/27/2022 04/08/2023 active omeprazole (PriLOSEC) 40 mg capsule Take 1 capsule (40 mg total) by mouth in the morning. 02/15/2022 03/06/2024 active metroNIDAZOLE (FLAGYL) 500 mg tablet Take 1 tablet (500 mg total) by mouth in the morning and 1 tablet (500 mg total) before bedtime. Do all this for 10 days. 02/15/2022 02/26/2022 active simvastatin (ZOCOR) 40 mg tablet TAKE 1 TABLET BY MOUTH EVERY DAY AT NIGHT 09/11/2021 11/29/2022 aborted OMEprazole (PriLOSEC) 40 MG capsule Take by mouth daily. 06/18/2021 active citalopram (celeXA) 20 mg tablet Take 1 tablet (20 mg total) by mouth daily. 04/17/2021 05/27/2022 active citalopram (CeleXA) 20 MG tablet Take 20 mg by mouth daily. 04/17/2021 active omeprazole (PriLOSEC) 40 mg capsule TAKE 1 CAPSULE BY MOUTH EVERY DAY 11/16/2020 02/15/2022 active metoprolol succinate XL (TOPROL-XL) 100 mg 24 hr tablet TAKE 1 AND 1/2 TABLETS DAILY BY MOUTH 10/30/2020 01/31/2023 active simvastatin (ZOCOR) 40 mg tablet Take 1 tablet (40 mg total) by mouth nightly. 08/18/2020 09/11/2021 aborted fluconazole (Diflucan) 200 mg tablet Take 1 tablet q weekly 06/13/2020 11/29/2022 active coenzyme Q10 (Co Q-10) 10 mg capsule Take 10 mg by mouth in the morning. 1 cap PO daily dose unk. active fexofenadine (Vanessa Allergy) 180 mg tablet Take 180 mg by mouth in the morning. active fluticasone propionate (FLONASE) 50 mcg/actuation nasal spray Administer 1 spray into each nostril in the morning and 1 spray before bedtime. active multivitamin with folic acid (THERAGRAN) 400 mcg tablet Take 1 tablet by mouth in the morning. active Allergies Allergen Reaction Severity Comment Documented Date Source Statu s NO KNOWN ALLERGIES 04/01/2014 [facility] ac tive Problems Problem Status Onset Date Problem Type Date of Resoluti on Source Mixed hyperlipidemia active 2017-09-06 ProblemAct [facility] Pre-diabetes active 2019-05-04 ProblemAct [facility] History of sinus surgery active 2024-10-31 ProblemAct [facility] Sinus pressure active 2024-10-31 ProblemAct [facility] Foot drop, left active 2020-12-[address] [facility] Overweight (BMI 25.0-29.9) active 2024-07-24 ProblemAct [facility] Acute midline low back pain with bilateral sciatica active 2023-01-12 ProblemAct [facility] History of Ferguson's esophagus active 2017-09-06 ProblemAct [facility] Chronic pansinusitis active 2024-10-31 ProblemAct [facility] Onychomycosis of great toe active 2020-06-13 ProblemAct [facility] Left leg weakness active 2020-11-13 ProblemAct [facility] Diverticulosis active 2019-01-25 ProblemAct [facility] Essential hypertension active 2017-09-06 ProblemAct [facility] Left lower quadrant abdominal pain active 2022-02-14 ProblemAct [facility] Witnessed apneic spells active 2024-05-31 ProblemAct [facility] Allergic rhinitis active 2024-10-31 ProblemAct [facility] Anxiety and depression active 2017-09-06 ProblemAct [facility] Umbilical hernia without obstruction and without gangrene active 2019-05-04 ProblemAct [facility] Diverticulitis of large intestine without perforation or abscess without bleeding active 2017-09-06 ProblemAct [facility] Gastroesophageal reflux disease without esophagitis active 2017-09-06 ProblemAct [facility] Obstructive sleep apnea syndrome active 2024-07-24 ProblemAct [facility] Abnormal EKG active 2024-05-03 ProblemAct [facility] Gastroesophageal reflux disease with esophagitis without hemorrhage active 2024-05-31 ProblemAct [facility] Right knee pain active 2023-09-[address] [facility] Immunizations Vaccine Date Source Lot Number Status Tdap 06/13/2020 [facility] [id number] completed Tdap 06/13/2020 [facility] [id number] completed Influenza, Quadrivalent 01/26/2019 [facility] [id number] c ompleted Influenza, Quadrivalent 01/26/2019 [facility] [id number] c ompleted Influenza, Unspecified 02/11/2017 [facility] [id number] co mpleted Influenza, Unspecified 02/11/2017 [facility] [id number] co mpleted Encounters Encounter Type Encounter Reason Primary Diagnosis Location Date Ambulatory Chronic pansinusitis Chronic pansinusitis [facility] 5 Ambulatory New Patient New Patient [facility] 5 Ambulatory Obstructive sleep ap shea (adult) (pediatr Obstructive sleep apnea (adult) (pediatric) [facility] 5 Ambulatory Obstructive sleep ap shea (adult) (pediatr Obstructive sleep apnea (adult) (pediatric) [facility] 5 Ambulatory Gastro-esophageal reflux disease with es Gastro-esophageal reflux disease with esophagitis, without bleeding [facility] 5 Ambulatory Abnormal electrocardiogram (ECG) (EKG) Abnormal electrocardiogram (ECG) (EKG) [facility] 5 Ambulatory Abnormal electrocardiogram (ECG) (EKG) Abnormal electrocardiogram (ECG) (EKG) [facility] 5 Ambulatory Encounter for genera l adult medical exam Encounter for general adult medical examination without abnormal findings [facility] 5 Ambulatory Pain in right knee Pain in right knee [facility] 4 Ambulatory Right upper quadrant pain [facility] 3 Ambulatory Lumbago with sciatic a, left side Lumbago with sciatica, left side [facility] 3 Ambulatory Radiculopathy, lumba r region Radiculopathy, lumbar region [facility] 3 Ambulatory Radiculopathy, lumba r region Radiculopathy, lumbar region [facility] 3 Ambulatory Essential (primary) hypertension Essential (primary) hypertension [facility] 3 Ambulatory Encounter for ge neral adult medical examination without abnormal findings [facility] 3 Ambulatory Left lower quadr ant pain [facility] 2 Ambulatory Hemorrhage of an us and rectum [facility] 2 Ambulatory Radiculopathy, l umbar region [facility] 2 Ambulatory Radiculopathy, l umbar region [facility] 1 Ambulatory [facility] 1 Ambulatory [facility] 1 Ambulatory Radiculopathy, l umbar region [facility] 1 Ambulatory Radiculopathy, l umbar region [facility] 1 Ambulatory Foot drop, left foot [facility] 1 Care Team Organization Name Specialty Phone Email Start Date End Da te [facility] 05/16/2024 08/19/2024 [facility] 01/24/2023 01/24/2023 [facility] CLAUDY Primary [facility] 01/14/2023 08/19/2024 [facility] Primary Care [facility] 03/26/2022 09/30/2024 [facility] CLAUDY HODGE Primary Care 07/10/2021 10/24/19 [facility] 07/10/2021 07/10/2021 [facility] CLAUDY HODGE Primary Care 03/25/19 22 [facility] CLAUDY [facility]anna Primary Care 12/06/19 21 03/25/2021
--- OUTSIDE RECORDS SUMMARY | 2024-11-07 16:41 | XMS_ITS | Encounter Summary ---
Author Organization [facility] Address [address] [place] [address] Care Team Providers Care Field Service Analyst Name Role Phone Rj Kevin Jimenez DO Primary Care Provider Tod hammond Encounter Details Date Type Department Care Team (Late st Contact Info) Description 11/13/2020 Orders Only [facility] Department of Interventional Radiology Imaging [address] [place] [address] Homer Dixon MD Social History Tobacco Use [...] have Coronavirus / COVID-19? No / Unsure 11/13/2020 10:52 AM EDT documented as of this encounter Plan of Treatment Upcoming Encounters Date Type Department Care Team (Late st Contact Info) Description 11/13/2024 1:20 PM EDT Office Visit [facility] Department of Otolaryngology [address] [place] [address] Halina Callahan PA-C [address] [place] [address] Tiffany Cain, RN [facility] [address] [place], [place] [phone] 02/04/2025 1:30 PM EST Office Visit [facility] Department of Otolaryngology [address] [place] [phone] Halina Callahan PAGunnar [address] [place] [phone] documented as of this encounter Visit Diagnoses Not on filedocumented in this encounter Additional Health Concerns Infection Onset Date Last Indicated Resolved Time COVID-19 (confirmed) 02/04/2022 02/09/2022 022 10:08 PM EST documented as of this encounter Care Teams Field Service Analyst Relationship Specialty Start Date End Date Kevin De La Rosa DO PCP - General 05/04/17 documented as of this encounter
== END 2024-11-07 15:08 | disposition home or self-care (01) ==
LOC: HO.HNS 14:23
PROVIDERS: Visit Provider Neurological Surgery
DX: M51.372 Other intervertebral disc degeneration, lumbosacral region with discogenic back pain and lower extremity pain (principal)
CPT/HCPCS: 99213

== ENCOUNTER 2024-11-21 14:42 | Outpatient (AMB) | payer BC, SELFPAY ==
--- NOTE | 2024-11-21 14:59 | HO.SPINEOV ---
Intake Visit Reasons: MRI f/up Intake Note: Mr. Levine is here today to F/u on the results to his MRI. Stage Electrician Helper Required: No Allergies No Known Allergies Allergy (Verified 11/21/24 14:59) Assessment & Plan Assessment & Plan (1) Disc disease, degenerative, lumbar or lumbosacral: Code(s): M51.379 - Other intervertebral disc degeneration, lumbosacral region without mention of lumbar back pain or lower extremity pain Category: Medical Qualifiers: Disc-related pain type: discogenic back pain and lower extremity pain Qualified Code(s): M51.372 - Other intervertebral disc degeneration, lumbosacral region with discogenic back pain and lower extremity pain Plan: Dear colleague, On 11/21/2024, I saw for follow-up Samir Levine. He suffering from severe low back pain due to extensive degenerative disc disease L5-S1 with Modic changes. The repeat MRI of 11/18/2024 again shows the 1 level that is severely deteriorated. The patient would like to try 1 more round of conservative management in the form of physical therapy and possibly yoga before making a decision about surgery. We discussed an anterior lumbar interbody fusion L5-S1. He may either call my office or return for another visit if he wants to proceed with surgery. I spent 15 minutes in his consult to review imaging and discussing plan of care. Giuseppe San MD, PhD Spine Fellowship Trained Neurosurgeon Director, [facility] Coding Level of Care Code Est Pt Level 2 (23370) Diagnoses Degeneration of intervertebral disc of lumbosacral region with discogenic back pain and lower extremity pain M51.372 Disc-related pain type: discogenic back pain and lower extremity pain
--- OUTSIDE RECORDS SUMMARY | 2024-11-21 18:20 | XMS_ITS | Encounter Summary ---
Author Organization [facility] Address [address] [place] [address] Care Team Providers Care Beef Cattle Grazier Name Role Phone Kevin De La Rosa DO Primary Care Provider [phone] Encounter Details Date Type Department Care Team (Late st Contact Info) Description 01/24/2023 Scanned Document [facility] [address] [phone] Provider, Eloy, [address] [place] [address] Social History Tobacco Use Types Packs/Day Years [...] on filedocumented in this encounter Care Teams Beef Cattle Grazier Relationship Specialty Start Date End Date Kevin De La Rosa DO [address] [phone] PCP - General 05/29/21 documented as of this encounter
--- OUTSIDE RECORDS SUMMARY | 2024-11-21 18:20 | XMS_ITS | Clinical Summary ---
Author Organization [facility] Address [address] [place] [address] Care Team Providers Care Bottle Packer Name Role Phone Kevin De La Rosa DO Primary Care Provider [phone] Allergies No known active allergies Medications citalopram [...] MORNING 02/23/2023 Active Sodium Sulfate-Mag Sulfate-KCl (Sutab) 1187-761-136 MG TabIndications:H istory of adenomatous polyp of [...] (Prev iously Completed), 08/19/2021 (Previously Completed) Insurance [place] [id number] [place] [address] Care Teams Bottle Packer Relationship Specialty Start Date End Date Kevin De La Rosa DO 1 [facility] [address] [place] [address] [facility] - General 05/29/21
--- OUTSIDE RECORDS SUMMARY | 2024-11-21 18:20 | XMS_ITS | Encounter Summary ---
Author Organization [facility] Address [address] [place] [address] Care Team Providers Care Riding Coach Name Role Phone Kevin De La Rosa DO Primary Care Provider Tod hammond Encounter Details Date Type Department Care Team (Late st Contact Info) Description 02/15/2022 Orders Only [facility] [address] [place] [phone] Kevin De La Rosa DO Social History [...] Care Team (Late st Contact Info) Description 11/26/2024 3:00 PM EDT Office Visit [facility] Department of Otolaryngology [address] [place] [address] Halina Callahan PA-C [address] [place] [address] Tiffany Cain, RN [facility] [address] [place] [address] 02/04/2025 1:30 PM EST Office Visit [facility] Department of Otolaryngology [address] [place], [place] [phone] Halina Callahan, PA-C [address] [place] [address] documented as of this encounter Visit Diagnoses Not on filedocumented in this encounter Additional Health Concerns Infection Onset Date Last Indicated Resolved Time COVID-19 (confirmed) 02/04/2022 02/09/2022 022 10:08 PM EST documented as of this encounter Care Teams Riding Coach Relationship Specialty Start Date End Date Kevin De La Rosa DO PCP - General 05/04/17 documented as of this encounter
--- OUTSIDE RECORDS SUMMARY | 2024-11-21 18:20 | XMS_ITS | Encounter Summary ---
Author Organization [facility] Address [address] [place] [address] Care Team Providers Care Ironing Pleater Name Role Phone Rj Kevin Jimenez DO Primary Care Provider Tod hammond Encounter Details Date Type Department Care Team (Late st Contact Info) Description 11/13/2020 Orders Only [facility] Department of Interventional Radiology Imaging [address] [place] [address] Homer Dixon MD Social History Tobacco Use [...] Description 11/26/2024 3:00 PM EDT Office Visit [facility] Department of Otolaryngology [address] [place] [address] Halina Callahan PA-C [address] [place] [address] Tiffany Cain, RN [facility] [address] [place], [place] [phone] 02/04/2025 1:30 PM EST Office Visit [facility] Department of Otolaryngology [address] [place] [address] Halina Callahan PAGunnar [address] [place] [phone] documented as of this encounter Visit Diagnoses Not on filedocumented in this encounter Additional Health Concerns Infection Onset Date Last Indicated Resolved Time COVID-19 (confirmed) 02/04/2022 02/09/2022 022 10:08 PM EST documented as of this encounter Care Teams Ironing Pleater Relationship Specialty Start Date End Date Kevin De La Rosa DO PCP - General 05/04/17 documented as of this encounter
--- OUTSIDE RECORDS SUMMARY | 2024-11-21 18:20 | XMS_ITS | Encounter Summary ---
Author Organization [facility] Address [address] [place] [address] Care Team Providers Care Title Curator Name Role Phone Rj Kevin Jimenez DO Primary Care Provider Tod hammond Encounter Details Date Type Department Care Team (Late st Contact Info) Description 12/05/2020 [facility] Only [facility] Department of Interventional Radiology Imaging [address] [place] [address] Homer Dixon MD Social History Tobacco Use [...] Description 11/26/2024 3:00 PM EDT [facility] Department of Otolaryngology [address] [place] [address] Halina Callahan PA-C [address] [place] [address] Tiffany Cain, RN [facility] [address] [place], [place] [id number] 02/04/2025 1:30 PM EST [facility] Department of Otolaryngology [address] [place] [address] Halina Callahan PAGunnar [address] [place] [address] documented as of this encounter Visit Diagnoses Not on filedocumented in this encounter Additional Health Concerns Infection Onset Date Last Indicated Resolved Time COVID-19 (confirmed) 02/04/2022 02/09/2022 022 10:08 PM EST documented as of this encounter Care Teams Title Curator Relationship Specialty Start Date End Date Kevin De La Rosa DO PCP - General 05/04/17 documented as of this encounter
--- OUTSIDE RECORDS SUMMARY | 2024-11-21 18:20 | XMS_ITS | Encounter Summary ---
Author Organization [facility] Address [address] [place] [address] Care Team Providers Care Tail Board Worker Name Role Phone Kevin De La Rosa Primary Care Provider [phone] Encounter Details Date Type Department Care Team (Late st Contact Info) Description 08/10/2021 Scanned Document [facility] [address] [phone] Oracio Valverde DO [address] [place] [address] Social History Tobacco Use Types Packs/Day Years [...] on filedocumented in this encounter Care Teams Tail Board Worker Relationship Specialty Start Date End Date Roto, Kevin F, DO [address] [place] [address] PCP - General 05/29/21 documented as of this encounter
--- OUTSIDE RECORDS SUMMARY | 2024-11-21 18:20 | XMS_ITS | Clinical Summary ---
Author Organization [facility] Address [address] [place] [address] Care Team Providers Care Restaurant Kitchen Manager Name Role Phone Kevin De La Rosa [...] Associated with daytime hypersomnolence ---> referral to [facility] pulmonary Assessment & Plan (05/31/2024 1:23 PM EDT): Referral to pulmonary [place] to set up sleep study suspected SURESH [...] awaiting Lumbar spine MRI Please call radiology [facility] --> to schedule Please continue modified ADL's and follow up with spine clinic [facility] Left lower quadrant abdominal pain 02/14/2022 Assessment [...] Plan (05/03/2024 1:41 PM EST): EKG-see today [id number] reviewed Vaccinations-consider seasonal flu- Covid Colonoscopy-last 2023 [...] Last EGD/colonoscopy - 08-10-2021 ?? CT [facility] formal path ? Assessment & Plan (03/26/2022 [...] Description 10/31/2024 2:40 PM EDT Ancillary Procedure [facility] [address] [place] [address] Halina Callahan PA-C Chronic pansinusitis 10/31/2024 2:30 PM EDT Office Visit [facility] Department of Otolaryngology [address] [place] [address] Halina Callahan PA-C History of sinus surgery (Primary Dx); Allergic rhinitis, unspecified seasonality, unspecified trigger; Chronic pansinusitis; Sinus pressure 09/05/2024 7:30 PM EDT Procedure visit [facility] [address] [place] [address] Alicia Arriaga, [employer] Obstructive sleep apnea syndrome from Last 3 [...] oz pur e alcohol) 2 beers day [facility] Utilities Answer Date Recorded In the [...] any time in the past [address] [facility], were you homeless or living in a custodial (including now)? No 05/03/2024 Education Answer Date [...] Description 11/26/2024 3:00 PM EDT Office Visit [facility] [address] [place] [address] Halina Callahan PA-C [address] [place] [address] Tiffany Cain, RN [facility] [address] [place] [id number] 02/04/2025 1:30 PM EST Office Visit [facility] [address] [place] [id number] Halina Callahan PA-C [address] [place] [id number] Health Maintenance Due Date Last Done Comments [...] (09/05/2024 12:00 AM EDT) 09/05/2024 Alicia Arriaga [facility] ORDERABLES Edited Result - Final [facility] [address] [facility] [place] [address], * MAGNESIUM (Q) (08/22/2024 1:20 PM EDT) [facility] MAGNESIUM 2.0 1.5 - 2.5 mg/dL [facility] Blood 08/22/2024 1:20 PM EDT 08/22/2024 1:22 PM EDT Narrative [facility] - 08/23/2024 3:49 AM EDT FASTING:NO FASTING: NO Kevin De La Rosa DO [facility] ORDERABLES Oliva guzman Result [facility] [employer] [address] [place] [id number] from Last 3 Months Insurance Care Teams Restaurant Kitchen Manager Relationship Specialty Start Date End Date Kevin De La Rosa DO PCP - General 05/04/17
== END 2024-11-21 15:33 | disposition home or self-care (01) ==
LOC: HO.HNS 14:43
PROVIDERS: Visit Provider Neurological Surgery
DX: M51.372 Other intervertebral disc degeneration, lumbosacral region with discogenic back pain and lower extremity pain (principal)
CPT/HCPCS: 99212